=== PATIENT | male | born 1985 | race Caucasian/White ===

== ENCOUNTER 2018-05-18 15:45 | Emergency (ER) | payer SELFPAY ==
[2018-05-18] MEDS ORDERED: Albuterol/Ipratropium 3.0-0.5 MG/3 ML Neb Soln NEB ONE ×2 (15:47→16:21)
[2018-05-18] MEDS ORDERED: methylPREDNISolone Sodium Succinate 125 MG/2 ML SDV IM ONE (15:47)
--- NOTE | 2018-05-18 15:49 | EDM.PDOC ---
ED HPI GENERAL MEDICAL PROBLEM - General Chief Complaint: Respiratory Problem Stated Complaint: SOB Time Seen by Provider: 05/18/18 15:46 Source of Information: Reports: Patient History Limitations: Reports: No Limitations - History of Present Illness INITIAL COMMENTS - FREE TEXT/NARRATIVE: HISTORY AND PHYSICAL: History of present illness: Patient is a 32-year-old male who presents to the emergency room with complaints of dyspnea. He states he has a history of asthma and usually takes a rescue inhaler. States that his medications are not alleviating his respiratory symptoms. He states that his nebulizer machine and Breo inhaler were left in [place] and had not had these available to him over the past several weeks. He denies any fever, chills, chest pain or cough. Denies any abdominal pain, nausea, vomiting, diarrhea or constipation. Review of systems: As per history of present illness and below otherwise all systems reviewed and negative. Past medical history: As per history of present illness and as reviewed below otherwise noncontributory. Surgical history: As per history of present illness and as reviewed below otherwise noncontributory. Social history: See social history for further information Family history: As per history of present illness and as reviewed below otherwise noncontributory. Physical exam: General: Well-developed and well-nourished 32-year-old male. Alert and oriented. Nontoxic appearing and in no acute distress. HEENT: Atraumatic, normocephalic, pupils equal and reactive bilaterally, negative for conjunctival pallor or scleral icterus, mucous membranes moist, TMs normal bilaterally, throat clear, neck supple, nontender, trachea midline. No drooling or trismus noted. No meningeal signs. No hot potato voice noted. Lungs: Diminished with inspiratory wheezing noted to the right posterior upper lung field, breath sounds equal bilaterally, chest nontender. He is able to speak in full sentences without shortness of breath. Heart: S1S2, regular rate and rhythm without overt murmur Abdomen: Soft, nondistended, nontender. Negative for masses or hepatosplenomegaly. Negative for costovertebral tenderness. Pelvis: Stable nontender. Genitourinary: Deferred. Rectal: Deferred. Skin: Intact, warm, dry. No lesions or rashes noted. Extremities: Atraumatic, negative for cords or calf pain. Neurovascular unremarkable. Neuro: Awake, alert, oriented. Cranial nerves II through XII unremarkable. Cerebellum unremarkable. Motor and sensory unremarkable throughout. Exam nonfocal. Notes: Patient's oxygen saturation is 94-97 on room air after the DuoNeb's. Lung sounds have improved post DuoNeb He states he has albuterol nebulizer solutions available at home. He does not have insurance therefore does not want a written prescription to get a nebulizer machine from [employer]. He states he will go to [facility] and pick one up. We'll refill his pre-oh inhaler. Treat him with a Z- Erickson and Medrol Dosepak as there is a slight infiltrate noted on x-ray. Radiology reading as normal. Supportive care measures were reviewed and discussed. Patient voices understanding and agreeable to plan of care. Diagnostics: Chest x-ray Therapeutics: DuoNeb, Solu-Medrol IM Prescription: Z-Erickson and Medrol Dosepak Breo (refill) Impression: Asthma exacerbation Plan: 1. Take your medication as directed. 2. Establish care with a primary care provider. Please be reevaluated in the next 1-2 days. Return to the ED as needed and as discussed. Definitive disposition and diagnosis as appropriate pending reevaluation and review of above. - Related Data Allergies Allergy/AdvReac Type Severity Reaction Status Date / Time No Known Allergies Allergy Verified 05/18/18 16:00 Home Meds: Home Meds Albuterol [Ventolin 2 MG/5 ML] 2 mg INH ASDIRECTED PRN 05/18/18 [History] ED ROS GENERAL - Review of Systems Review Of Systems: ROS reveals no pertinent complaints other than HPI. ED EXAM, GENERAL - Physical Exam Exam: See Below (See dictation) Course - Vital Signs Last Recorded V/S: Last Vital Signs Temp 96.2 F 05/18/18 15:56 Pulse 71 05/18/18 16:48 Resp BP 131/72 05/18/18 16:48 Pulse Ox 94 L 05/18/18 16:48 - Orders/Labs/Meds Orders: Active Orders 24 hr Category Date Time Status RT Aerosol Therapy [RC] ASDIRECTED Care 05/18/18 15:48 Active RT Aerosol Therapy [RC] ASDIRECTED Care 05/18/18 16:21 Active Meds: Medications Discontinued Medications Generic Name Dose Route Start Last Admin Trade Name Freq PRN Reason Stop Dose Admin Albuterol/Ipratropium 3 ml 05/18/18 15:47 05/18/18 15:55 Duoneb 3.0-0.5 Mg/3 Ml NEB 05/18/18 15:48 3 ml ONETIME ONE Administration Albuterol/Ipratropium 3 ml 05/18/18 16:21 05/18/18 16:30 Duoneb 3.0-0.5 Mg/3 Ml NEB 05/18/18 16:22 3 ml ONETIME ONE Administration Methylprednisolone Sodium Succinate 125 mg 05/18/18 15:47 05/18/18 15:55 Solu-Medrol IM 05/18/18 15:48 125 mg ONETIME ONE Administration Departure - Departure Time of Disposition: 16:54 Disposition: Home, Self-Care 01 Clinical Impression: Exacerbation of asthma Qualifiers: Asthma severity: moderate Asthma persistence: persistent Qualified Code(s): J45.41 - Moderate persistent asthma with (acute) exacerbation - Discharge Information Instructions: Asthma, Adult, [id number] Referrals: PCP,None [Ordering Only Provider] - Forms: ED Department Discharge Additional Instructions: The following information is given to patients seen in the emergency department who are being discharged to home. This information is to outline your options for follow-up care. We provide all patients seen in our emergency department with a follow-up referral. The need for follow-up, as well as the timing and circumstances, are variable depending upon the specifics of your emergency department visit. If you don't have a primary care physician on staff, we will provide you with a referral. We always advise you to contact your personal physician following an emergency department visit to inform them of the circumstance of the visit and for follow-up with them and/or the need for any referrals to a consulting specialist. The emergency department will also refer you to a specialist when appropriate. This referral assures that you have the opportunity for follow-up care with a specialist. All of these measure are taken in an effort to provide you with optimal care, which includes your follow-up. Under all circumstances we always encourage you to contact your private physician who remains a resource for coordinating your care. When calling for follow-up care, please make the office aware that this follow-up is from your recent emergency room visit. If for any reason you are refused follow-up, please contact the [facility] Emergency Department at and asked to speak to the emergency department charge nurse. DINORA [facility] [address] [place] [address] [facility] [address] [place] [id number] 1. Take your medication as directed. 2. Establish care with a primary care provider. Please be reevaluated in the next 1-2 days. Return to the ED as needed and as discussed. - My Orders Last 24 Hours: My Active Orders 05/18/18 15:48 RT Aerosol Therapy [RC] ASDIRECTED 05/18/18 16:21 RT Aerosol Therapy [RC] ASDIRECTED - Assessment/Plan Last 24 Hours: My Active Orders 05/18/18 15:48 RT Aerosol Therapy [RC] ASDIRECTED 05/18/18 16:21 RT Aerosol Therapy [RC] ASDIRECTED
--- NOTE | 2018-05-18 16:52 | CR ---
INDICATION: Pain. Shortness of breath and asthma. TECHNIQUE: Portable chest. FINDINGS: The heart and mediastinum are normal. Lungs are clear. No consolidations or pleural effusions are identified. Trachea is midline. No pneumothorax is identified. Probable bone island or granuloma over the left 4th anterior rib. IMPRESSION: No evidence of acute airspace infiltrates. Dictated by Sekou Sahni MD @ May 18 2018 4:48PM Signed by Dr. Sekou Sahni @ May 18 2018 4:52PM
== END 2018-05-18 16:50 | disposition home or self-care (01) ==
LOC: MW.ED 15:45
DX: J45.41 Moderate persistent asthma with (acute) exacerbation (principal); Z79.899 Other long term (current) drug therapy
CPT/HCPCS: 71045; 94640; 96372; 99285; J2930; J7620-GY